=== PATIENT | male | born 1970 | race Caucasian/White ===

== ENCOUNTER 2017-08-15 12:16 | Emergency (ER) ==
[2017-08-15 12:35] VITALS: BP 117/76; TEMP 98; BMI 15.5
[2017-08-15] MEDS ORDERED: VISTARIL INJ IM STA (12:51)
--- NOTE | 2017-08-15 12:51 | ED.PDOC ---
General ED Provider: Dr. BELKYS CANALES Chief Complaint: Non-specific Complaint Stated Complaint: Tongue and mouth feels swollen. States under much stress. Taking recreational Oxycodone. Developed spasms in mouth and tongue this morning. Jackpot like he was having a panic attack Time Seen by Physician: 12:35 Mode of Arrival: Ambulance Information Source: Patient Exam Limitations: No limitations Primary Care Provider: BABITA MONTERO Referred to ED by: PCP (5-7 days) Nursing and Triage Documentation Reviewed and Agree: Yes Reviewed sepsis parameters & appropriate labs ordered?: Yes System Inflammatory Response Syndrome: Not Applicable Sepsis Protocol: For patient's 13 years and over: Temp is 96.8 and below OR 101 and greater Pulse >90 BPM Resp >20/minute Acutely Altered Mental Status Are patient's symptoms suggestive of a new infection, such as: -Pneumonia -Skin, Soft Tissue -Endocarditis -UTI -Bone, Joint Infection -Implantable Device -Acute Abdominal Infection -Wound Infection -Meningitis -Blood Stream Catheter Infection -Unknown System Inflammatory Response Syndrome: Not Applicable EENT Complaint Exam - Dental/Oral Complaint/Exam Mechanism of Injury: No known trauma Symptoms Are: Resolved Timing: Intermittent Initial Severity: Moderate Current Severity: None Related History: Denies: Similar episode, Valvular heart disease, TMJ disfunction, Previous tooth problem, Third molars present, Third molars absent Cardiac Risk Factors: Reports: None Dental/Oral Surgical History: Reports: None Review of Systems - Review Of Systems Constitutional: Reports: No symptoms Eyes: Reports: No symptoms Ears, Nose, Mouth, Throat: Reports: No symptoms, Mouth pain, Mouth swelling Respiratory: Reports: No symptoms Cardiac: Reports: No symptoms GI: Reports: No symptoms : Reports: No symptoms Musculoskeletal: Reports: No symptoms Skin: Reports: No symptoms Neurological: Reports: No symptoms Endocrine: Reports: No symptoms Hematologic/Lymphatic: Reports: No symptoms All Other Systems: Reviewed and Negative Past Medical History - Past Medical History Endocrine: Reports: None Cardiovascular: Reports: None Respiratory: Reports: None Hematological: Reports: None Gastrointestinal: Reports: None Genitourinary: Reports: None Neuro/Psych: Reports: Anxiety, Other (prescribtion oxycodone abuse) Musculoskeletal: Reports: None Cancer: Reports: None - Surgical History General Surgical History: Reports: None - Family History Family History: Reports: None - Social History Smoking Status: Current every day smoker Hx Substance Use: Yes (vinod) Alcohol Screening: None - Immunizations Tetanus Shot up to Date: Yes Physical Exam - Physical Exam Appearance: Well-nourished, Thin Ill-appearing: None Pain Distress: Mild Eyes: JOSE MARTIN, EOMI, Conjunctiva clear ENT: Ears normal, Nose normal, Oropharynx normal, Dry mucosa (oral mucosa wnl. no reddness or localized lesions noted) Neck: Supple Respiratory: Airway patent, Breath sounds clear, Breath sounds equal, Respirations nonlabored GI/: Soft, Nontender, No masses, Bowel sounds normal, No Organomegaly Musculoskeletal: Normal strength, ROM intact, No edema, No calf tenderness Neurological: Sensation intact, Motor intact, Reflexes intact, Cranial nerves intact, Alert, Oriented Psychiatric: Anxious Re-Evaluation - Re-Evaluation Time of Re-Evaluation: 15:30 Status: Improved Vital Signs Stable: Yes Appearance: NAD Lungs: Clear Skin: Warm and Dry Neuro: Alert and Oriented X3 CV: RRR Critical Care Note - Critical Care Note Total Time (mins): 0 Course - Course Hematology/Chemistry: 08/15/17 13:05 08/15/17 13:05 Vital Signs: Temp Pulse Resp BP Pulse Ox 08/15/17 12:19 98 F 75 16 117/76 98 Departure - Departure Time of Disposition: 15:50 Disposition: HOME SELF-CARE Discharge Problem: Panic attack, Acute anxiety Instructions: Anxiety (ED) Condition: Good Pt referred to PMD for follow-up: Yes IPMP verified?: No Additional Instructions: Avoid taking controlled substances or meds not prescribed for you! Follow up with PCP of your choice in 5-7 days Prescriptions: Hydroxyzine HCl [Atarax] 25 mg PO QID PRN #20 tablet PRN Reason: Abdominal Pain Allergies/Adverse Reactions: Allergies Penicillins Allergy (Severe, Verified 08/15/17 16:12) Hives Patient will notify drugstore Home Medications: Ambulatory Orders Hydroxyzine HCl [Atarax] 25 mg PO QID PRN #20 tablet 08/15/17 Disposition Discussed With: Patient, Family
== END 2017-08-15 16:35 | disposition home or self-care (01) ==
LOC: ED 12:16
DX: F41.0 Panic disorder [episodic paroxysmal anxiety] (principal); F11.10 Opioid abuse, uncomplicated; F17.210 Nicotine dependence, cigarettes, uncomplicated; R20.0 Anesthesia of skin; R22.0 Localized swelling, mass and lump, head
CPT/HCPCS: 36415; 80053; 80306; 81001; 83735; 85025; 96372; 99284